=== PATIENT | male | born 2005 | race Caucasian/White ===

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

== ENCOUNTER 2023-03-22 08:17 | Emergency (ER) | payer BC, SELFPAY ==
[2023-03-22 08:17] VITALS: BP 141/88; PULSE 92; RESP 14; TEMP 36.5; O2SAT 100; BMI 26.6
--- NOTE | 2023-03-22 08:29 | EDS_ITS ---
HPI History of Present Illness Chief Complaint: General Illness Narrative Narrative: Patient presents with vomiting and just not feeling right. Patient states that on Monday he was driving. He does drive a truck for living. He states he started to get nauseated so he pulled over. He did vomit then. But he has not vomited since. He states since then he just has not felt right. He feels like his thought process is a little bit slow and his energy is a little bit low. But he is not having nausea vomiting. He is eating normally. No diarrhea. Does not seem like he has had polyuria polydipsia or blurry vision. No muscle aches headaches abdominal pain chest pain. No fevers. He does not know anyone else who is sick. He states he just does not feel like his normal self. His mother figures he has a virus. But he wanted to get evaluated because it just is out of the ordinary for him. Patient has no long-term medical problems. He takes no medications Allergies to penicillin. No recent surgeries. No [id number] meds or supplements or change in diet of note. PFSH [facility] Home Medications naproxen 500 mg tablet 500 mg PO BID #20 tabs 10/29/21 [Rx Last Taken Unknown] Allergy/AdvReac Type Severity Reaction Status Date / Time Penicillins Allergy Rash Verified 03/22/23 08:18 Social History Smoking Status: Never smoker ROS ROS ED Constitutional Constitutional ED: Denies chills or fever(s) Eyes Eyes: Denies blurry vision or change in vision ENT ENT ED: Reports other Details: Does have slight ear fullness but no pain. ; Denies rhinorrhea or sore throat Cardiovascular Cardiovascular: Denies chest pain or palpitations Respiratory/Chest Respiratory/Chest: Denies cough, dyspnea or sputum Gastrointestinal Gastrointestinal: Reports nausea and vomiting; Denies abdominal pain or diarrhea Genitourinary Genitourinary ED: Denies dysuria or hematuria Musculoskeletal Musculoskeletal: Denies myalgias Integumentary Denies rash Neurologic Neurologic: Denies headache(s), paresthesias or weakness Endocrine Endocrinology: Denies polydipsia or polyuria Hematologic/Lymphatic Hematologic/Lymphatic: Denies lymphadenopathy Allergic/Immunologic Allergic/Immunologic ED: Denies urticaria EXAM Physical Exam Narrative Exam Narrative: CONSTITUTIONAL: Patient is nontoxic in appearance. The patient looks comfortable. He carries on normal conversation. HEENT: No notable trauma. Mucous membranes still look moist. No sinus tenderness. No indication of pain with swallowing. Tympanic membranes are both clear. No significant amount of fluid. There is a small amount of cerumen in the right canal but its not pressing on the tympanic membrane notably. EYES: No conjunctival injection. No proptosis. No pallor. Range of motion is normal. No photophobia. Pupillary responses normal. CARDIOVASCULAR: Regular rate. Regular rhythm. No notable murmur. No JVD. RESPIRATORY: No respiratory distress. Breathing is unlabored. No wheezes. No rhonchi. No rales. No pain with a deep breath. The patient is not hypoxic and has O2 sats of 100% on room air. GASTROINTESTINAL: Not distended. Bowel sounds are normal. No tenderness. No guarding. No rebound. No palpable mass. No bruit. GENITOURINARY: No tenderness over the bladder. No CVA tenderness. MUSCULOSKELETAL: Atraumatic. No peripheral edema. . NEUROLOGICAL: Patient is alert and appropriate. No focal deficit noted. Gait and coordination are normal. SKIN: No noted rashes. No diaphoresis. Petechiae. No purpura. No pallor. PSYCHIATRIC: Patient is calm. Mood is appropriate. Const Vital Signs: 03/22/23 08:17 03/22/23 08:40 03/22/23 09:29 Temperature 97.7 F L Temperature Source Temporal Pulse Rate 92 59 L Respiratory Rate 14 16 Respiratory Pattern Normal Blood Pressure 141/88 H 113/62 Blood Pressure Mean 105 79 Pulse Ox 100 99 Oxygen Delivery Method Room Air [facility] [place] Narrative Medical decision making narrative: I agree that the patient does likely have viral illness. With his episode of nausea and just feeling off, we will check electrolytes to make sure we do not see changes in the electrolytes or blood sugar. The patient's basic metabolic panel shows no acute abnormalities. Glucose is normal. We will get the patient home. We encouraged fluids rest. If he still having symptoms in a few days he should get rechecked. Lab Data Attestation: I reviewed the patient's lab results. Labs: Laboratory Results - last 24 hr 03/22/23 08:37 Sodium 139 Potassium 3.9 Chloride 105 Carbon Dioxide 29.0 Anion Gap 5 BUN 15 Creatinine 1.27 Estim Creat Clear Calc 93.56 Est GFR (MDRD) Af Amer 93 Est GFR (MDRD) Non-Af 77 BUN/Creatinine Ratio 11.8 Glucose 96 Calcium 9.6 Discharge Plan Triage Chief Complaint: General Illness ED Provider: Giovany Miller Dx/Rx/DC Orders Clinical Impression: Acute viral syndrome, Nausea & vomiting Instructions: ED Viral Syndrome (Adult) Prescriptions: No Action naproxen 500 MG tablet 500 mg PO BID Qty: 20 0RF Primary Care Provider: Care Physician,No Primary Referrals: Carin Burden MD [Non-Staff] - 3-5 Days if not improving Disposition Disposition: Home, Self Care Discharge Date/Time: 03/22/23 09:30
[2023-03-22 09:06] LABS: Anion Gap 5 (5-15); BUN 15 mg/dL (7-18); BUN/Creat Ratio 11.8 RATIO (10-20); Calcium,Total 9.6 mg/dL (8.5-10.1); Chloride 105 mmol/L (98-107); Creatinine, Serum 1.27 mg/dL (0.70-1.30); EST Glomerular Filtration Rate 77 mL/min (>60); Est Glom Filt Rate - Afr Amer 93 mL/min (>60); Estimated Creatinine Clearance 93.56 ml/min; Glucose 96 mg/dL (74-106); Potassium 3.9 mmol/L (3.5-5.1); Sodium Level 139 mmol/L (136-145)
[2023-03-22 09:29] VITALS: BP 113/62; PULSE 59; RESP 16; O2SAT 99
== END 2023-03-22 09:30 | disposition home or self-care (01) ==
LOC: ED 09:10
PROVIDERS: Emergency Provider Emergency Medicine; Visit Provider Emergency Medicine
DX: B34.9 Viral infection, unspecified (principal); R11.2 Nausea with vomiting, unspecified
CPT/HCPCS: 36415; 80048; 99282